=== PATIENT | female | born 1985 | race Caucasian/White ===

== ENCOUNTER 2019-07-21 17:05 | Emergency (ER) | payer OTHER, SELFPAY ==
[2019-07-21 17:16] VITALS: BP 155/93; PULSE 90; RESP 18; TEMP 37.1; O2SAT 95; BMI 61.3
--- NOTE | 2019-07-21 17:39 | XR_ITS ---
WS: [id number] Chest with right rib detail, 07/21/2019 Clinical Data: lifting/pain Comparison: None. Findings: The lungs show no nodules, masses, or effusions. The heart is normal. No pneumonia or pneumothorax is seen. The ribs are intact. No rib fractures seen. No subcutaneous emphysema is present. XR/XR ribs RT mn 3V w [id number] Impression: Negative chest with right rib detail.
--- NOTE | 2019-07-21 18:29 | ED_ITS ---
HPI - General Adult General: Chief complaint: General Medical Stated complaint: right rib pain Time Seen by Provider: 07/21/19 18:22 Source: patient Mode of arrival: ambulatory Limitations: no limitations History of Present Illness: HPI narrative: Patient is a 34-year-old female who presents to ED today with complaints of pain to her right back/chest. Patient states she was lifting something at work and heard a pop and wonders if she might have a rib out of place. Patient denies shortness of breath or difficulty breathing. She states pain seems to be worse with movement. Location: chest and back Severity: mild Pain Consistency: intermittent Relieving factors: immobilization Exacerbating factors: movement Associated symptoms: Reports no associated symptoms and chest pain; Deny dyspnea, nausea, palpitations, syncope or vomiting Treatments prior to arrival: none Review of Systems Const: Denies: fever or chills Card: Reports: chest pain; Denies: palpitations, irregular heart rhythm, edema, swelling of feet/ankles, lightheadedness, syncope, pre-syncope, shortness of breath on exertion, shortness of breath when lying down, leg pain with exertion or bluish discoloration of hands/feet Resp: Denies: shortness of breath, productive cough, non-productive cough, pain on inspiration, change in phlegm color, coughing up blood or chest congestion GI: Denies: abdominal pain, nausea or vomiting : Denies: flank pain, difficulty urinating, painful urination, urinary frequency, urinary urgency or urinary hesitancy Musc: Reports: back pain; Denies: neck pain, extremity pain, extremity swelling, joint pain or joint swelling PFS ED PFSH: Social History Smoking and tobacco status: current every day smoker Female Reproductive History: Date of last menstrual period: 06/24/19 Physical Exam Const: COMMON NORMALS: no apparent distress, oriented x3, no limitations and alert NUTRITIONAL APPEARANCE: obese Chest: COMMONS NORMALS: inspection of chest normal OTHER: TTP along mid posterior and lateral chest; no crepitus noted Resp: COMMON NORMALS: normal respiratory effort and clear to auscultation bilaterally AUSCULTATION: clear to auscultation bilaterally Cardio: COMMON NORMALS: regular rate and regular rhythm RATE: regular rate RHYTHM: regular rhythm GI: COMMON NORMALS: normal to inspection, nondistended, normoactive bowel sounds, soft to palpation, non-tender, no hepatosplenomegaly and no masses PALPATION: Yes soft and Yes no hepatosplenomegaly Extremity: COMMON NORMALS: normal to inspection and full ROM Neuro: COMMON NORMALS: oriented x3 SENSORIUM/ORIENTATION: Yes alert Course Vital Signs: Vital signs: Vital Signs Temperature 98.7 F 07/21/19 17:16 Pulse Rate 88 07/21/19 18:34 Respiratory Rate 17 07/21/19 18:34 Blood Pressure 157/90 07/21/19 18:34 Pulse Oximetry 92 07/21/19 18:34 MDM - General Adult Imaging Data^: R ribs/chest: My impression: NAD Discharge Plan Discharge Patient Disposition: Home, Self-Care Clinical Impression: Chest wall muscle strain Qualifiers: Encounter type: initial encounter Qualified Code(s): S29.011A - Strain of muscle and tendon of front wall of thorax, initial encounter Condition: Stable Prescriptions: No Action hydrocodone-acetaminophen 5-325 mg Tablet 1 tab PO Q4H PRN (Reason: Pain) RF: 0 lisinopril 20 mg Tablet 20 mg PO DAILY RF: 0 amlodipine 5 mg Tablet 5 mg PO DAILY RF: 0 levothyroxine 50 mcg Tablet 50 mcg PO DAILY RF: 0 buspirone 15 mg Tablet 15 mg PO TID RF: 0 venlafaxine 37.5 mg Tablet Extended Release 24 Hr 37.5 mg PO DAILY RF: 0 Discharge Orders: Discharge Order (Routine); Ordered 07/21/19 Ordered By: Dory Pollack Referrals: Fani Garcia MD [Family Provider] - Discharge Diet: Usual diet Discharge Activity: Increase activity as tolerated Patient Instructions: Chest Pain - Chest Wall, Musculoskeletal Pain (ED) Discharge Date/Time: 07/21/19 18:35 Coding Level of Care Code ED Nurse Epidemiologist for Stefania Kinsey
[2019-07-21 18:32] VITALS: BP 157/90; PULSE 88; RESP 18; O2SAT 92
[2019-07-21 18:34] VITALS: BP 157/90; PULSE 88; RESP 17; O2SAT 92
== END 2019-07-21 18:35 | disposition home or self-care (01) ==
PROVIDERS: Emergency Provider Physician Assistant; Family Provider Family Medicine
DX: S29.011A Strain of muscle and tendon of front wall of thorax, initial encounter (principal); F17.200 Nicotine dependence, unspecified, uncomplicated; E66.9 Obesity, unspecified; Z68.44 Body mass index [BMI] 60.0-69.9, adult; X50.9XXA Other and unspecified overexertion or strenuous movements or postures, initial encounter
CPT/HCPCS: 71101; 99281; 99282

== ENCOUNTER 2021-04-29 10:38 | Observation (INO) | payer OTHER, SELFPAY ==
[2021-04-29] VITALS (17 sets, daily range): BP systolic 111–159; BP diastolic 66–101; PULSE 74–96; RESP 14–20; TEMP 36.4–37.6; O2SAT 90–98; BMI 58.1; BMI 61.2
--- NOTE | 2021-04-29 10:39 | ED_ITS ---
HPI - Abdominal Pain General: Chief Complaint: Abdominal Pain Stated Complaint: abdominal pain Source: patient Mode of arrival: ambulatory Limitations: no limitations History of Present Illness: HPI narrative: 35-year-old female presents the ER today for periumbilical abdominal pain x3 days. Patient reports she was seen in another ER yesterday and given Zofran but did not have any imaging done. Patient reports pain has continued to worsen at this time. She reports nausea and vomiting, chills and a subjective fever. Patient denies diarrhea or constipation at this time. Patient reports a history of an undiagnosed umbilical hernia however it does seem to be larger and worse at this time. Patient reports her pain is located around the area of the umbilicus and denies any radiation other than in that general area. Patient reports this is a sharp pain that is almost constant currently. Patient denies any pain with urination or urinary symptoms. MD elicited complaint: abdominal pain Onset (ago): day(s) Pain Consistency: constant Location: Periumbilical Severity: moderate Quality: aching and sharp Radiation: none Exacerbating factors: eating and movement Relieving factors: nothing Associated Symptoms: Reports bloating, chills, fever(s), nausea and vomiting; Denies constipation and diarrhea Related Data: Date of Last Menstrual Period: 06/24/19 Review of Systems General: Reports: 10 or more systems reviewed and unremarkable except in HPI and below Const: Reports: fever(s), chills and change in appetite; Denies: body aches ENMT: Denies: throat pain, nasal discharge or nasal congestion Card: Denies: chest pain or palpitations Resp: Denies: dyspnea, productive cough or wheezing GI: Reports: abdominal pain, nausea, vomiting and bloating; Denies: diarrhea or constipation Musc: Denies: neck pain or back pain Skin/Breast: Denies: rash Neuro: Denies: headache(s) PFSH ED PFSH: Medical History (Updated 04/29/21 @ 14:36 by Laquita Lewis PA-C) Chronic back pain Hypertension Hypothyroidism Polycystic ovary disease Surgical History (Updated 04/29/21 @ 13:46 by Keith Means MD) Varicose vein of leg Ablated from left thigh Social History (Updated 04/29/21 @ 13:46 by Keith Means MD) Smoking and tobacco status: current every day smoker cigarettes Packs smoked per day: 0.5 Years cigarettes smoked: 15 Alcohol intake: never Female Reproductive History: Date of last menstrual period: 06/24/19 Physical Exam Const: COMMON NORMALS: patient oriented x3 and no limitations GENERAL APPEARANCE: cooperative; not comfortable (pt appears uncomfortable) NUTRITIONAL APPEARANCE: obese HENMT: COMMON NORMALS: normocephalic, external ears normal and Normal external nose present HEAD & SCALP: normocephalic NOSE: Normal external nose present EXTERNAL EAR: Yes external ears normal Eye: COMMON NORMALS: conjunctivae normal CONJUNCTIVA: Yes conjunctivae normal Neck/C-Spine: COMMON NORMALS: no lymphadenopathy Resp: COMMON NORMALS: normal respiratory effort, No retractions and clear to auscultation bilaterally AUSCULTATION: clear to auscultation bilaterally, no rales, no rhonchi and no wheezes Cardio: COMMON NORMALS: regular rate, regular rhythm and No murmurs present (Cardio) RATE: regular rate RHYTHM: regular rhythm GI: INSPECTION: Yes other (umbilical hernia noted that is TTP and difficult to reduce) AUSCULTATION: Yes normoactive bowel sounds PALPATION: Yes Firmness to palpation present (GI) and Yes Tenderness to palpation present (GI) (periumbilical and superior to umbilicus) : COMMON NORMALS: Yes no CVA tenderness BLADDER/KIDNEY EXAM: Yes no CVA tenderness Back/Pelvis: COMMON NORMALS: no CVA tenderness Extremity: COMMON NORMALS: full ROM Neuro: COMMON NORMALS: patient oriented x3 and moves all extremities Psych: COMMON NORMALS: mental status grossly normal, Normal thought process present, cooperative and normal affect THOUGHT PROCESS: Normal thought process present Skin: COMMON NORMALS: no rashes or lesions noted GENERAL SKIN EXAM: no rashes or lesions noted Course ED course: 35-year-old female presents to the ER today for abdominal pain that is located periumbilically. She does appear to have an umbilical hernia though she reports is undiagnosed. This is difficult to reduce given size and tenderness. There is also tenderness and a firm area superior to the umbilicus. We will get CT of the abdomen in addition to lab work at this time. Discussed patient with Dr. Mccormick who agreed with plan. Consultations: Consultation #1: Spoke with radiology. Patient has an incarcerated hernia superior to the umbilicus. There is small bowel within the hernia that is incarcerated and patient has a proximal obstruction to that. Also spoke with Dr. Mccormick who recommends calling surgery. Patient's pain is mini mal at this time. We will proceed with an NG tube. Time: 13:02 Consultation #2: Spoke with Dr. Means who will see pt in ED Time: 13:14 Vital Signs: Vital signs: Vital Signs Temperature 98.2 F 04/29/21 14:05 Pulse Rate 81 04/29/21 14:05 Respiratory Rate 16 04/29/21 14:05 Blood Pressure 126/81 04/29/21 14:05 Pulse Oximetry 98 04/29/21 14:05 MDM - Abdominal Pain MDM Narrative: Medical decision making narrative: 35-year-old female presents to the ER today for abdominal pain x3 days. Patient was seen in another ER and given Zofran but pain did not improve. Pain is periumbilical and worse with eating. On exam patient appears to have a hernia, likely incarcerated. CT does indicate an incarcerated hernia with small bowel involvement. Contacted Dr. Means who agreed to see patient in ER. Patient will be taken to surgery from here. Lab Data: Attestation: I reviewed the patient's lab results. Labs: Lab Results 04/29/21 04/29/21 04/29/21 10:50 10:50 10:50 WBC 13.4 10^3/uL H 10 ^3/uL (4.0-10.0) RBC 6.61 10^6/uL H 10 ^6/uL (4.1-5.3) Hgb 14.1 g/dL g/dL (11.5-15.3) Hct 46.9 % % (37.0-47.0) MCV 71.0 fl L fl (81-99) MCH 21.3 pg L pg (28.0-34.0) MCHC 30.1 g/dL g/dL (30.0-36.0) RDW 18.5 % H % (12.1-15.1) Plt Count 363 10^3/cmm 10^3 /cmm (130-400) MPV 9.2 fL fL (7.4-10.4) Neut % (Auto) 76.7 % % Lymph % (Auto) 11.0 % % [place] % (Auto) 9.5 % % Eos % (Auto) 1.8 % % Baso % (Auto) 0.6 % % Neut # (Auto) 10.23 10^3/uL H 1 0^3/uL (1.8-7.7) Lymph # (Auto) 1.5 10^3/uL 10^3/ uL (0.8-4.8) [place] # (Auto) 1.3 10^3/uL H 10^ 3/uL (0.2-0.9) Eos # (Auto) 0.2 10^3/uL 10^3/ uL (0.0-0.8) Baso # (Auto) 0.1 10^3/uL 10^3/ uL (0.0-0.1) Nucleated RBC % (a uto) 0 % % Nucleated RBCs # 0.0 /100WBC /100W BC PT INR APTT Sodium 134 mmol/L L mmol /L (136-145) Potassium 3.6 mmol/L mmol/L (3.5-5.1) Chloride 96 mmol/L L mmol/ L (98-107) Carbon Dioxide 24 mmol/L mmol/L (22-29) Anion Gap 17.6 (5-19) BUN 11 mg/dL mg/dL (6-20) Creatinine 0.8 mg/dL mg/dL (0.5-0.9) GFR Calculation 81.2 mL/min L mL/ min (90-130) Glucose 108 mg/dL mg/dL (65-115) Calculated Osmolal ity 278 mOsm/kg L mOs m/kg (285-295) Lactate 1.1 mmol/L mmol/L (0.5-2.2) Calcium 8.6 mg/dL mg/dL (8.5-10.5) Total Bilirubin 0.5 mg/dL mg/dL (0.15-1.2) AST 15 U/L U/L (0-32) ALT 19 U/L U/L (0-33) Alkaline Phosphata se 59 IU/L IU/L (35-105) Total Protein 7.1 g/dL g/dL (6.6-8.7) Albumin 3.8 g/dL g/dL (3.5-5.2) Globulin 3.3 g/dL g/dL (1.3-4.6) Lipase 13 U/L U/L (13-60) HCG, Qual Urine Color Urine Appearance Urine pH Ur Specific Gravit y Urine Protein Urine Glucose (UA) Urine Ketones Urine Blood Urine Nitrate Urine Bilirubin Urine Urobilinogen Ur Leukocyte Eve ase 04/29/21 04/29/21 04/29/21 10:50 11:15 11:15 WBC RBC Hgb Hct MCV MCH MCHC RDW Plt Count MPV Neut % (Auto) Lymph % (Auto) [place] % (Auto) Eos % (Auto) Baso % (Auto) Neut # (Auto) Lymph # (Auto) [place] # (Auto) Eos # (Auto) Baso # (Auto) Nucleated RBC % (a uto) Nucleated RBCs # PT 14.30 SECONDS SEC ONDS (12.1-14.9) INR 1.08 (0.8-1.2) APTT 27.5 SECONDS SECO NDS (23.9-36.7) Sodium Potassium Chloride Carbon Dioxide Anion Gap BUN Creatinine GFR Calculation Glucose Calculated Osmolal ity Lactate Calcium Total Bilirubin AST ALT Alkaline Phosphata se Total Protein Albumin Globulin Lipase HCG, Qual Negative (Negative) Urine Color Yellow (Yellow) Urine Appearance Clear (CLEAR) Urine pH 5 (5-7) Ur Specific Gravit y 1.025 (1.005-1.030) Urine Protein Neg (Negative) Urine Glucose (UA) Norm (Normal) Urine Ketones 2+ H (Negative) Urine Blood Neg (Negative) Urine Nitrate Negative (Negative) Urine Bilirubin 1+ H (Negative) Urine Urobilinogen 4 mg/dL H mg/dL (Negative) Ur Leukocyte Eve ase Negative (Negative) Imaging Data ^: CT Abd/Pel: Radiologist's impression: [address] [address] [address] Scan Report Signed Patient: Renee Mata Unit #: [id number] : 1985 Age/Sex: 35 / F ADM Date: 04/29/21 Loc: ER Room/Bed: Attending Dr: Ordering Provider/Ordering MD: Laquita Lewis Date of Service: 04/29/21 Procedure(s): CT abdomen pelvis w con* [id number] Accession Number(s): [id number] Report Number: [id number] WS: [id number] CT ABDOMEN PELVIS TECHNIQUE: Contrast-enhanced CT of the abdomen and pelvis with coronal and sagittal reformatted images. Delayed contrast imaging due to difficulty with IV with poor solid organ enhancement. CLINICAL INFORMATION: periumbilical pain COMPARISON: None. DLP: 1738.[address] scans at [facility] use at least one of these dose optimization techniques: automated exposure control; mA and/or kV adjustment per patient size (includes targeted exams where dose is matched to clinical indication); or iterative reconstruction. FINDINGS: Supraumbilical hernia with herniated loop of obstructed small bowel. Incarcerated herniated small bowel loop with evidence of proximal small bowel obstruction. Fluid-filled obstructed proximal small bowel measures 3.8 cm in maximum dimension. Small amount of induration with trace fluid in the supraumbilical hernia. Distal small bowel is decompressed. Normal colon. Liver appears grossly normal. Small amount of perihepatic fluid. Normal spleen. Fatty atrophy of the pancreas. Gallbladder appears normal. Normal GE junction. Lung bases are well aerated. Normal caliber abdominal aorta. CT/CT abdomen pelvis w con* [id number] IMPRESSION: 1. Evidence of small bowel obstruction due to incarcerated supraumbilical hernia with herniated loop of small bowel. Small amount of surrounding induration and fluid. Dilated small bowel loops measure up to 3.8 cm. No free air. Distal small bowel is decompressed. 2. No other acute findings in the abdomen or pelvis. Attempted notification Laquita Lewis PA-C at 04/29/2021 12:55 PM. Not currently available for verbal report. 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
--- NOTE | 2021-04-29 10:39 | CT_ITS ---
WS: [id number] CT ABDOMEN PELVIS TECHNIQUE: Contrast-enhanced CT of the abdomen and pelvis with coronal and sagittal reformatted image s. Delayed contrast imaging due to difficulty with IV with poor solid organ enhancement. CLINICAL INFORMATION: periumbilical pain COMPARISON: None. DLP: 1738.[address] scans at [facility] use at least one of these dose optimization techniques: automated e xposure control; mA and/or kV adjustment per patient size (includes targeted exams where dose is matc hed to clinical indication); or iterative reconstruction. FINDINGS: Supraumbilical hernia with herniated loop of obstructed small bowel. Incarcerated herniated small bow el loop with evidence of proximal small bowel obstruction. Fluid-filled obstructed proximal small bow el measures 3.8 cm in maximum dimension. Small amount of induration with trace fluid in the supraumbi lical hernia. Distal small bowel is decompressed. Normal colon. Liver appears grossly normal. Small amount of perihepatic fluid. Normal spleen. Fatty a trophy of the pancreas. Gallbladder appears normal. Normal GE junction. Lung bases are well aerated. Normal caliber abdominal aorta. CT/CT abdomen pelvis w con* [id number] IMPRESSION: 1. Evidence of small bowel obstruction due to incarcerated supraumbilical raul ia with herniated loop of small bowel. Small amount of surrounding induration a nd fluid. Dilated small bowel loops measure up to 3.8 cm. No free air. Distal s mall bowel is decompressed. 2. No other acute findings in the abdomen or pelvis. Attempted notification Laquita Lewis PA-C at 04/29/2021 12:55 PM. Not currently available for verbal report.
[2021-04-29 11:12] LABS: Basophils # 0.1 10^3/uL (0.0-0.1); Basophils % 0.6 %; Eosinophils # 0.2 10^3/uL (0.0-0.8); Eosinophils % 1.8 %; Hematocrit 46.9 % (37.0-47.0); Hemoglobin 14.1 g/dL (11.5-15.3); Lymphocytes # 1.5 10^3/uL (0.8-4.8); Mean Corpuscular HGB Conc 30.1 g/dL (30.0-36.0); Mean Corpuscular Hemoglobin 21.3 pg (28.0-34.0); Mean Platelet Volume 9.2 fL (7.4-10.4); Monocytes # 1.3 10^3/uL (0.2-0.9); Monocytes % 9.5 %; Neutrophils # 10.23 10^3/uL (1.8-7.7); Neutrophils % 76.7 %; Nucleated Red Blood Cells % 0 %; Platelet Count 363 10^3/cmm (130-400); Red Blood Count 6.61 10^6/uL (4.1-5.3); Red Cell Distribution Width 18.5 % (12.1-15.1); White Blood Count 13.4 10^3/uL (4.0-10.0)
[2021-04-29 11:16] LABS: INR 1.08 (0.8-1.2)
[2021-04-29 11:17] LABS: Partial Thromboplastin Time 27.5 SECONDS (23.9-36.7)
[2021-04-29 11:27] LABS: Alanine Aminotransferase 19 U/L (0-33); Albumin Level 3.8 g/dL (3.5-5.2); Alkaline Phosphatase 59 IU/L (35-105); Anion Gap 17.6 (5-19); Aspartate Amino Transferase 15 U/L (0-32); Blood Urea Nitrogen 11 mg/dL (6-20); Calcium 8.6 mg/dL (8.5-10.5); Carbon Dioxide 24 mmol/L (22-29); Chloride 96 mmol/L (98-107); Globulin 3.3 g/dL (1.3-4.6); Glomerular Filtration Rate 81.2 mL/min (90-130); Glucose 108 mg/dL (65-115); Lactate (Lactic Acid level) 1.1 mmol/L (0.5-2.2); Lipase 13 U/L (13-60); Osmolality Calculated 278 mOsm/kg (285-295); Potassium 3.6 mmol/L (3.5-5.1); Sodium 134 mmol/L (136-145); Total Bilirubin 0.5 mg/dL (0.15-1.2); Total Protein 7.1 g/dL (6.6-8.7)
[2021-04-29 11:47] LABS: Add Urine Microscopic? NO; Charge for UA Resulting for Rev
[2021-04-29 11:52] LABS: HCG Qualitative Urine. Negative (Negative)
[2021-04-29 12:12] LABS: Bilirubin Urine 1+ (Negative); Blood Urine Neg (Negative); Glucose Urine UA Norm (Normal); Ketones Urine 2+ (Negative); Leukocyte Esterase Urine Negative (Negative); Nitrate Urine Negative (Negative); Protein Urine Neg (Negative); Specific Gravity, Urine 1.025 (1.005-1.030); Urine Appearance Clear (CLEAR); Urine Color Yellow (Yellow); Urobilinogen Urine 4 mg/dL (Negative); pH Urine 5 (5-7)
--- NOTE | 2021-04-29 13:43 | P.HP_ITS ---
Providers/Chief Complaint Admitting Physician: General Surgery Keith Means MD Primary Care Provider: Dafne Minaya DO Chief Complaint: abdominal pain History of Present Illness Renee Mata is a 35 year old female who started feeling bloated about 5 days ago. She started vomiting the next day and that has persisted until now. She has been aware of a small bulge on her abdomen above her umbilicus for several years. She says she also has had a small bulge at her umbilicus for several years. She has noticed the bulge above her umbilicus has been more sore since her symptoms started earlier this week. She has not had a bowel movement since Sunday (4 days ago). She doesn't recall passing any flatus since then, either. She came to the emergency room and a CAT scan showed changes of a small bowel obstruction secondary to an incarcerated hernia above the umbilical level. Review of Systems General: Reports: 10 or more systems reviewed and unremarkable except in HPI and below Const: Denies: fever(s) GI: Reports: abdominal pain, nausea, vomiting and other (Obstipation for 4 days) Medications/Allergies Home Medications Medication Instructions Recorded Confirmed Last Taken Type amlodipine 5 mg PO DAILY 07/21/19 07/21/19 07/21/19 History hydrocodone-acetaminophen 1 tab PO Q4H PRN 07/21/19 07/21/19 07/21/19 04:00 History levothyroxine 50 mcg PO DAILY 07/21/19 07/21/19 07/21/19 History lisinopril-hydrochlorothiazide 1 tab PO DAILY 04/29/21 04/29/21 04/28/21 History tramadol 50 mg PO Q6H PRN 04/29/21 04/29/21 Unknown History Allergies Allergy/AdvReac Type Severity Reaction Status Date / Time No Known Allergies Allergy Verified 07/21/19 17:20 PFSH Acute PFSH: Medical History (Updated 04/29/21 @ 13:50 by Keith Means MD) Hypertension Hypothyroidism Polycystic ovary disease Surgical History (Updated 04/29/21 @ 13:46 by Keith Means MD) Varicose vein of leg Ablated from left thigh Social History (Updated 04/29/21 @ 13:46 by Keith Means MD) Smoking and tobacco status: current every day smoker cigarettes Packs smoked per day: 0.5 Years cigarettes smoked: 15 Alcohol intake: never Female Reproductive History: Date of last menstrual period: 06/24/19 Vitals/I&O/Wt Last Vital Signs Temp 99.7 F H 04/29/21 10:48 Pulse 93 04/29/21 10:48 Resp 20 H 04/29/21 10:48 BP 127/88 04/29/21 10:48 Pulse Ox 95 04/29/21 10:48 Weight last 48 hrs Weight 360 lb Physical Exam Narrative: EXAM NARRATIVE: The patient was encountered in her room in the emergency department. She doesn't appear to be in any distress. The pupils are equal. No carotid bruits are heard. The lungs are clear anteriorly. The heart is regular. The abdomen is morbidly obese. The patient has a palpable mass that somewhat firm above the umbilicus but is only mildly tender. This is in the location of the hernia seen on the CAT scan but I cannot get the area to completely reduce. She has an obvious umbilical hernia which only appears to contain fat and is nontender. The extremities may reveal some very mild edema. Neurologically the patient appears to be grossly intact. Data : 04/29/21 10:50 04/29/21 10:50 CT Abd/Pel: Radiologist's impression: CT abdomen/pelvis 04/29/2021 IMPRESSION: 1. Evidence of small bowel obstruction due to incarcerated supraumbilical hernia with herniated loop of small bowel. Small amount of surrounding induration and fluid. Dilated small bowel loops measure up to 3.8 cm. No free air. Distal small bowel is decompressed. 2. No other acute findings in the abdomen or pelvis. A&P Assessment and plan (1) Incarcerated ventral hernia: The patient has been aware of a bump above her umbilicus for several years. This been more sore since the beginning of this last week but hasn't really changed a great deal in size. The CAT scan was reviewed and this reveals an incarcerated hernia involving the small bowel resulting in a small bowel obstruction. I discussed reduction and repair of the hernia with the patient. Surgical risks of bleeding, infection, hernia recurrence (particularly given her size), details of postoperative activity limitation for 6 weeks, etc. were all discussed. The patient seems to understand and would like to proceed with surgery today. The patient has only had sips of fluids today. She has not had any solid food over the past several days. I'm going to make arrangements for the urgent reduction and repair of the incarcerated ventral hernia today. Status: Acute (2) Small bowel obstruction: Secondary to #1. Status: Acute (3) Umbilical hernia: This is not part of the patient's acute presentation, but I offered her the chance to get this repaired while she was in the operating room today since it is not going to change her postoperative activity limitations, etc. She would like me to repair it. Status: Acute Attestations Medical Necessity Statement*: Based on my medical assessment, presenting symptoms and consideration of the scope of surgical therapy, I expect this patient will require treatment in the hospital for a period of time spanning less than 2 midnights, and is therefore being placed in observation status. 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
--- NOTE | 2021-04-29 13:55 | PC.NURSE ---
This RN unable to place NG tube as staff came down from surgery to take pt almost immediately
--- NOTE | 2021-04-29 14:03 | P.ANESASSM_ITS ---
Pre-Anesthetic Assessment Pre-Anesthetic Assessment: Height/Weight: Height 1.68 m Weight 163.293 kg Temp Pulse Resp BP Pulse Ox 99.7 F H 93 20 H 127/88 95 04/29/21 13:56 04/29/21 13:56 04/29/21 13:56 04/29/21 13:56 04/29/21 13:56 Preop Diagnosis: incarcerated hernia Proposed Procedure: Operation Date: 04/29/21 14:00 Proposed Procedures p Ventral Hernia Repair (Open)(Not Applicable) - Keith Means MD s Umbilical Hernia Repair(Not Applicable) - Keith Means MD Familial anesthetic complications: none Was Beta Charlette taken within 24 hours: N/A Was Clonidine taken within 24 hours: N/A Last intake: Food- 04/25 Liquid- 04/29 0900 Social: Social History: Tobacco Packs per day: 0.5 Pack years: 20 Exam: Pre-Anes Outpt Exam: alert, oriented x 3 and clear to auscultation bilaterally Airway: Submandibular: WNL Cervical ROM: WNL MP: 2 Dentition: Full History/ROS: No significant history except as noted Pulmonary: Comments: patient believes she has LEON no study done. CV/HEM: CV/HEM: HTN : : None reported Hepatic: Hepatic: None reported GI: GI: None reported Comments: N/V all week no current symptoms Metabolic: Metabolic: Morbid obesity and Thyroid Musc/skel: Musc/skel: Lower Back Pain and OA/DJD Neuropsych: Neuropsych: None reported Anesthetic Plan: ASA status: 3 Anesthesia: General Risk of > 500 ml blood loss (7ml/kg in children): No PFSH Anesthesia PFSH: Medical History (Updated 04/29/21 @ 13:50 by Keith Means MD) Hypertension Hypothyroidism Polycystic ovary disease Surgical History (Updated 04/29/21 @ 13:46 by Keith Means MD) Varicose vein of leg Ablated from left thigh Social History (Updated 04/29/21 @ 13:46 by Keith Means MD) Smoking and tobacco status: current every day smoker cigarettes Packs smoked per day: 0.5 Years cigarettes smoked: 15 Alcohol intake: never Female Reproductive History: Date of last menstrual period: 06/24/19 Data Anesthesia CBC & Chem 7: 04/29/21 10:50 04/29/21 10:50 Other Labs: Laboratory Results - last 48 hr 04/29/21 04/29/21 04/29/21 10:50 10:50 10:50 WBC 13.4 H RBC 6.61 H Hgb 14.1 Hct 46.9 MCV 71.0 L MCH 21.3 L MCHC 30.1 RDW 18.5 H Plt Count 363 MPV 9.2 Neut % (Auto) 76.7 Lymph % (Auto) 11.0 [place] % (Auto) 9.5 Eos % (Auto) 1.8 Baso % (Auto) 0.6 Neut # (Auto) 10.23 H Lymph # (Auto) 1.5 [place] # (Auto) 1.3 H Eos # (Auto) 0.2 Baso # (Auto) 0.1 Nucleated RBC % (auto) 0 Nucleated RBCs # 0.0 PT INR APTT Sodium 134 L Potassium 3.6 Chloride 96 L Carbon Dioxide 24 Anion Gap 17.6 BUN 11 Creatinine 0.8 GFR Calculation 81.2 L Glucose 108 Calculated Osmolality 278 L Lactate 1.1 Calcium 8.6 Total Bilirubin 0.5 AST 15 ALT 19 Alkaline Phosphatase 59 Total Protein 7.1 Albumin 3.8 Globulin 3.3 Lipase 13 HCG, Qual Urine Color Urine Appearance Urine pH Ur Specific [place] Urine Protein Urine Glucose (UA) Urine Ketones Urine Blood Urine Nitrate Urine Bilirubin Urine Urobilinogen Ur Leukocyte Esterase 04/29/21 04/29/21 04/29/21 10:50 11:15 11:15 WBC RBC Hgb Hct MCV MCH MCHC RDW Plt Count MPV Neut % (Auto) Lymph % (Auto) [place] % (Auto) Eos % (Auto) Baso % (Auto) Neut # (Auto) Lymph # (Auto) [place] # (Auto) Eos # (Auto) Baso # (Auto) Nucleated RBC % (auto) Nucleated RBCs # PT 14.30 INR 1.08 APTT 27.5 Sodium Potassium Chloride Carbon Dioxide Anion Gap BUN Creatinine GFR Calculation Glucose Calculated Osmolality Lactate Calcium Total Bilirubin AST ALT Alkaline Phosphatase Total Protein Albumin Globulin Lipase HCG, Qual Negative Urine Color Yellow Urine Appearance Clear Urine pH 5 Ur Specific [place] 1.025 Urine Protein Neg Urine Glucose (UA) Norm Urine Ketones 2+ H Urine Blood Neg Urine Nitrate Negative Urine Bilirubin 1+ H Urine Urobilinogen 4 H Ur Leukocyte Esterase Negative Cardiac Studies: No Data to Display
[2021-04-29] MEDS: sodium chloride 0.9% 1,000 ML 30 ML IV (14:23)
[2021-04-29] MEDS: ceFAZolin 1,000 MG in sodium chloride 0.9% (plus) 50 ML 100 MG IV (14:38)
--- NOTE | 2021-04-29 15:21 | PM.OP ---
Operative Report Date of procedure: April 29, 2021 Pre-op Diagnosis: 1. Incarcerated ventral hernia resulting in small bowel obstruction. Pre-op Diagnosis: 2. Umbilical hernia. Post-op diagnosis: same Procedure Done: 1. Reduction and repair of incarcerated ventral hernia. 2. Repair of umbilical hernia. Specimens removed/disposition: Incarcerated ventral hernia sac with incarcerated omentum. Surgeon: Keith Means Anesthesia: General Estimated blood loss (mL): 10 Complications: None. Condition: stable Disposition: PACU Procedure: The patient was brought to the operating room and was placed in a supine position on the operating room table. General endotracheal anesthesia was induced. The abdomen was prepped and draped in a sterile fashion. A combination of 1% lidocaine with 1 to 100,000 parts epinephrine and 0.5% bupivacaine was used for local anesthesia throughout the procedures. A vertical incision was carried out above the umbilicus. Cautery was used to divide the subcutaneous tissue and the hernia sac was quickly identified. The contents through the sac appeared to be somewhat dusky and the hernia sac was freed on all sides down to the fascia. The hernia sac was opened revealing minimal serosanguineous fluid but some dusky omentum was incarcerated within the hernia. This was serially divided and ligated with ties of 2-0 Vicryl back to obviously healthy tissue. In the process, it became apparent that a small loop of bowel was present within the inferior portion of the hernia defect. This was somewhat hemorrhagic in appearance but was clearly viable. It was easily reduced through the defect. The remainder of the incarcerated omentum was ligated and the hernia sac and omentum were spent as a specimen. Dissection was then carried out inferiorly towards the known umbilical hernia. It was found that some of the original herniated fat had extended superiorly on top of the fascia and was incorporated into the clinically apparent umbilical hernia. The incarcerated fat was excised. The ventral wall hernia defect that remained measured perhaps 6 cm in diameter but the surrounding tissue was in very good condition and was lax. The wound was irrigated with saline. The defect was closed transversely using multiple interrupted sutures of #2 Ethibond. This did a good job of bringing the tissue back together without undue tension and completely closed the defect. The dependent portion of the umbilical skin was brought back down to the fascial layer using a suture of 0 Vicryl. A final round of irrigation was carried out. The dermis was closed using multiple inverted interrupted sutures of 2-0 Vicryl. The skin was reapproximated using a running subcuticular suture of 3-0 Vicryl. Benzoin and Steri-Strips were placed over the incision and a sterile bandage followed. The patient was taken to the recovery room in stable condition postoperatively.
[2021-04-29] MEDS: ondansetron 2 mg/ML SDV 2 mL 4 MG IVP (15:53)
--- NOTE | 2021-04-29 16:09 | SUR.PHASEI ---
1536 PT TO OPS BAY 10 PT CARE PER MEAT SELECTOR AND OR NURSE Federico RINCNO RN, PT CARE ASSUMED AT 1545 PT AWAKES AND ORAL AIRWAY OUT, PT C/OF NAUSEA, COOL CLOTH TO FOREHEAD, PT HOB UP SEE MED GIVEN 1607 PT OUT OF PHASE 1 PT CARE ASSUMED BY Corry PINEDA RN.
--- NOTE | 2021-04-29 16:14 | ANE.PACU2 ---
Inpatient post-anesthesia follow up: Airway intact: Yes Vital signs: Temperature 97.8 F Pulse Rate 90 Respiratory Rate 14 Blood Pressure 150/86 Pulse Oximetry 92 Oxygen Delivery Me thod Nasal Cannula Oxygen Flow Rate 3 Fraction of Inspir ed Oxygen Hydration adequate: Yes Nausea and vomiting: No Pain level: 2 Mental status: Baseline
--- NOTE | 2021-04-29 16:15 | PC.NURSE ---
REPORT RECEIVED FROM ROSARIO ZALDIVAR RN AND CARE TAKEN OVER. FAMILY AT BEDSIDE. DR TREVINO SPOKE WITH PT IN EXTENDED CARE AND DISCUSSED PLAN OF CARE.
--- NOTE | 2021-04-29 16:52 | PC.NURSE ---
PT EATING CLEAR LIQUID TRAY.
[2021-04-29] MEDS: ketorolac 30 mg/mL INJ IVP (17:15)
[2021-04-29] MEDS: HYDROcodone-acetaminophen 5-325 mg Tablet PO (17:22)
--- NOTE | 2021-04-29 17:32 | SUR.PHASEI ---
1710 PT ATE MOST OF THE CLEAR LIQUID TRAY PT NOW C/O OF ABD PAIN PT GRIMICES BUT DOES NOT GIVE A NUMBER, FACE SCALE 5 SEE MEDS GIVEN ORDERED FOR THE FLOOR, PT STILL IN HOLDING WAITING FOR ROOM TO BE READY.
[2021-04-29] MEDS: famotidine 20 mg/2 mL INJ IVP (18:24)
[2021-04-29] MEDS: levofloxacin-dextrose 5 % 500 MG/100 ML PREMIX 100 MG IV (18:25)
[2021-04-29] MEDS: heparin 5,000 unit/mL INJ 1 mL 5000 UNIT SUBCUT (18:25)
[2021-04-29] MEDS: D5-NS 0.45% + KCL 20 mEq 20 MEQ/1,000 ML BAG 100 MEQ IV (19:21)
[2021-04-29] MEDS: TRAMadol 50 mg Tablet PO (19:46)
[2021-04-29] MEDS: levalbuterol 0.63 mg/3 mL Neb INHALATION (19:58)
[2021-04-30] MEDS: levalbuterol 0.63 mg/3 mL Neb INHALATION ×2 (00:22→07:39)
[2021-04-30 00:23] VITALS: PULSE 81; RESP 18; O2SAT 95
[2021-04-30 00:29] VITALS: PULSE 79
[2021-04-30] MEDS: HYDROcodone-acetaminophen 5-325 mg Tablet PO (03:57)
[2021-04-30 04:41] VITALS: BP 122/78; PULSE 81; RESP 18; TEMP 36.7; O2SAT 94
[2021-04-30] MEDS: famotidine 20 mg/2 mL INJ IVP (05:35)
[2021-04-30] MEDS: heparin 5,000 unit/mL INJ 1 mL 5000 UNIT SUBCUT (05:45)
[2021-04-30] MEDS: D5-NS 0.45% + KCL 20 mEq 20 MEQ/1,000 ML BAG 100 MEQ IV (05:46)
[2021-04-30 06:23] LABS: Basophils % 0.4 %; Eosinophils # 0.1 10^3/uL (0.0-0.8); Eosinophils % 0.8 %; Hematocrit 40.6 % (37.0-47.0); Hemoglobin 12.1 g/dL (11.5-15.3); Lymphocytes # 0.7 10^3/uL (0.8-4.8); Lymphocytes % 7.3 %; Mean Corpuscular HGB Conc 29.8 g/dL (30.0-36.0); Mean Corpuscular Hemoglobin 21.1 pg (28.0-34.0); Mean Corpuscular Volume 70.7 fl (81-99); Monocytes # 0.9 10^3/uL (0.2-0.9); Monocytes % 9.5 %; Neutrophils # 8.05 10^3/uL (1.8-7.7); Neutrophils % 81.7 %; Nucleated Red Blood Cells % 0 %; Platelet Count 312 10^3/cmm (130-400); Red Blood Count 5.74 10^6/uL (4.1-5.3); Red Cell Distribution Width 16.9 % (12.1-15.1); White Blood Count 9.9 10^3/uL (4.0-10.0)
[2021-04-30 07:01] LABS: Anion Gap 17.6 (5-19); Blood Urea Nitrogen 10 mg/dL (6-20); Calcium 8.2 mg/dL (8.5-10.5); Carbon Dioxide 20 mmol/L (22-29); Chloride 99 mmol/L (98-107); Glomerular Filtration Rate 113.1 mL/min (90-130); Glucose 131 mg/dL (65-115); Osmolality Calculated 277 mOsm/kg (285-295); Potassium 3.6 mmol/L (3.5-5.1); Sodium 133 mmol/L (136-145)
[2021-04-30 07:41] VITALS: PULSE 80; RESP 16; O2SAT 93
[2021-04-30 07:44] VITALS: PULSE 82; RESP 18; O2SAT 94
[2021-04-30 08:00] VITALS: BP 133/86; PULSE 96; RESP 16; TEMP 36.8; O2SAT 92
[2021-04-30] MEDS: hydroCHLOROthiazide 25 mg Tablet PO (09:06)
[2021-04-30] MEDS: lisinopril 20 mg Tablet PO (09:06)
[2021-04-30] MEDS: amlodipine 5 mg Tablet PO (09:06)
[2021-04-30] MEDS: TRAMadol 50 mg Tablet PO (09:11)
--- NOTE | 2021-04-30 09:30 | PM.DCS ---
Discharge Providers Date of Admission: 04/29/21 17:25 Date of Discharge: April 30, 2021 Attending Provider at Admission: Keith Means MD Attending Provider at Discharge: Keith Means MD Primary Care Provider: Dafne Minaya DO Diagnoses at Discharge Discharge Diagnosis (1) Incarcerated ventral hernia: Status: Acute Permanent problem details: With small bowel obstruction (2) Small bowel obstruction: Status: Acute (3) Umbilical hernia: Status: Acute Qualifiers: Obstruction and gangrene presence: without obstruction or gangrene Qualified Code(s): K42.9 - Umbilical hernia without obstruction or gangrene Reason for Visit Reason for Visit: abdominal pain Hospital Course Hospital Course This is a 35-year-old white female with a several year history of known ventral and umbilical hernias. She developed symptoms of obstipation about 4 to 5 days prior to presentation to the emergency department. A CAT scan showed an incarcerated loop of small bowel within her ventral hernia above the umbilicus, resulting in a small bowel obstruction. The patient was taken to surgery urgently and the ventral and umbilical hernias were both repaired. She was found to have a limited loop of small bowel within the ventral hernia that was somewhat hemorrhagic but was clearly viable. No bowel was resected. By the following morning the patient was feeling well and thought she was ready to go home. She had not started passing flatus yet but felt like she was close. She was tolerating an oral diet and her pain was under good control. Vital signs were stable and her white blood cell count had returned to normal. The patient was instructed with respect to wound care, activity limitations, pain control (she is already on pain medication at home and thought that would be adequate postoperatively), diet, etc. Arrangements will be made for her to follow-up in my office in a period of 7 to 10 days. Physical Exam Narrative: EXAM NARRATIVE: Vital signs are stable. Bowel sounds are present. The midline incision dressing is intact. Discharge Data Data Completed and Pending: Completed Studies During Hospitalization Category Date Time Status CT abdomen pelvis w con* [id number] Urge nt Cat Scan 04/29/21 10:39 Completed Pending at discharge Category Date Time Status Pathology: Surgic al [PTH] Routine Pth 04/29/21 16:31 Ordered Labs from last 24 hours 04/30/21 04/30/21 04/29/21 06:03 06:03 11:15 WBC 9.9 RBC 5.74 H Hgb 12.1 Hct 40.6 MCV 70.7 L MCH 21.1 L MCHC 29.8 L RDW 16.9 H Plt Count 312 MPV 9.0 Neut % (Auto) 81.7 Lymph % (Auto) 7.3 [place] % (Auto) 9.5 Eos % (Auto) 0.8 Baso % (Auto) 0.4 Neut # (Auto) 8.05 H Lymph # (Auto) 0.7 L [place] # (Auto) 0.9 Eos # (Auto) 0.1 Baso # (Auto) 0.0 Nucleated RBC % (a uto) 0 Nucleated RBCs # 0.0 PT INR APTT Sodium 133 L Potassium 3.6 Chloride 99 Carbon Dioxide 20 L Anion Gap 17.6 BUN 10 Creatinine 0.6 GFR Calculation 113.1 Glucose 131 H Calculated Osmolal ity 277 L Lactate Calcium 8.2 L Total Bilirubin AST ALT Alkaline Phosphata se Total Protein Albumin Globulin Lipase HCG, Qual Urine Color Yellow Urine Appearance Clear Urine pH 5 Ur Specific Gravit y 1.025 Urine Protein Neg Urine Glucose (UA) Norm Urine Ketones 2+ H Urine Blood Neg Urine Nitrate Negative Urine Bilirubin 1+ H Urine Urobilinogen 4 H Ur Leukocyte [place] a[place] Negative 04/29/21 04/29/21 04/29/21 11:15 10:50 10:50 WBC RBC Hgb Hct MCV MCH MCHC RDW Plt Count MPV Neut % (Auto) Lymph % (Auto) [place] % (Auto) Eos % (Auto) Baso % (Auto) Neut # (Auto) Lymph # (Auto) [place] # (Auto) Eos # (Auto) Baso # (Auto) Nucleated RBC % (a uto) Nucleated RBCs # PT 14.30 INR 1.08 APTT 27.5 Sodium Potassium Chloride Carbon Dioxide Anion Gap BUN Creatinine GFR Calculation Glucose Calculated Osmolal ity Lactate 1.1 Calcium Total Bilirubin AST ALT Alkaline Phosphata se Total Protein Albumin Globulin Lipase HCG, Qual Negative Urine Color Urine Appearance Urine pH Ur Specific Gravit y Urine Protein Urine Glucose (UA) Urine Ketones Urine Blood Urine Nitrate Urine Bilirubin Urine Urobilinogen Ur Leukocyte Eve ase 04/29/21 04/29/21 10:50 10:50 WBC 13.4 H RBC 6.61 H Hgb 14.1 Hct 46.9 MCV 71.0 L MCH 21.3 L MCHC 30.1 RDW 18.5 H Plt Count 363 MPV 9.2 Neut % (Auto) 76.7 Lymph % (Auto) 11.0 [place] % (Auto) 9.5 Eos % (Auto) 1.8 Baso % (Auto) 0.6 Neut # (Auto) 10.23 H Lymph # (Auto) 1.5 [place] # (Auto) 1.3 H Eos # (Auto) 0.2 Baso # (Auto) 0.1 Nucleated RBC % (a uto) 0 Nucleated RBCs # 0.0 PT INR APTT Sodium 134 L Potassium 3.6 Chloride 96 L Carbon Dioxide 24 Anion Gap 17.6 BUN 11 Creatinine 0.8 GFR Calculation 81.2 L Glucose 108 Calculated Osmolal ity 278 L Lactate Calcium 8.6 Total Bilirubin 0.5 AST 15 ALT 19 Alkaline Phosphata se 59 Total Protein 7.1 Albumin 3.8 Globulin 3.3 Lipase 13 HCG, Qual Urine Color Urine Appearance Urine pH Ur Specific Gravit y Urine Protein Urine Glucose (UA) Urine Ketones Urine Blood Urine Nitrate Urine Bilirubin Urine Urobilinogen Ur Leukocyte Eve ase Vitals: Last Vital Signs Temp 98.2 F 04/30/21 08:00 Pulse 96 04/30/21 08:00 Resp 16 04/30/21 08:00 BP 133/86 04/30/21 08:00 Pulse Ox 92 04/30/21 08:00 Discharge Plan Discharge Patient Disposition: Home Condition: Stable Prescriptions: Continued hydrocodone-acetaminophen 5-325 mg Tablet 1 tab PO Q4H PRN (Reason: Pain) RF: 0 amlodipine 5 mg Tablet 5 mg PO DAILY RF: 0 levothyroxine 50 mcg Tablet 50 mcg PO DAILY RF: 0 tramadol 50 mg Tablet 50 mg PO Q6H PRN (Reason: Pain) RF: 0 lisinopril-hydrochlorothiazide 20-25 mg tablet 1 tab PO DAILY RF: 0 Discharge Orders: Discharge Order (Routine); Ordered 04/30/21 Ordered By: Keith Means Referrals: Keith Means MD [Physician] - 7-10 days (Nursing: Please have the patient / family call Dr. Means's office on Sunday ([phone]) and make an appointment for the patient to be seen in 7-10 days.) Discharge Diet: Advance as tolerated Discharge Activity: Limit activity as instructed Patient Instructions: Ventral Hernia Repair (DC), Opioid Safety Activity Restrictions/Additional Instructions: 1. Discharge to home today. 2. Appointment to see Dr. Means in 7-10 days as above. 3. Bandage off tomorrow, leave Steri-Strip(s) on, may shower. 4. Pain medication at home as previously prescribed and discussed. No lifting over 20 pounds, no repetitive bending or twisting, no strenuous pushing / pulling or other heavy activity. Ambulate regularly. May go up and down steps if needed. Discharge Attestations Time Spent in Discharge Care*: less than 30 min Quality Metrics Clinical Quality Measures During this hospital stay, did patient experience: None Coding Level of Care Code Acute g DC note Diagnoses Incarcerated ventral hernia K43.6 Small bowel obstruction K56.609 Umbilical hernia K42.9 Obstruction and gangrene presence: without obstruction or gangrene
== END 2021-04-30 10:11 | disposition home or self-care (01) ==
LOC: ER 13:42 → OR 13:48 → MEDSURG 17:25
PROVIDERS: Emergency Medicine; Admitting Provider Surgery; Emergency Provider Physician Assistant; PCP Family Medicine; Visit Provider Surgery
PROC: 0WQF0ZZ Repair Abdominal Wall, Open Approach (ICD-10-PCS; CPT 49520; principal; 2021-04-29 14:00)
PROC: (CPT 49520; 2021-04-29 14:00)
DX: K43.6 Other and unspecified ventral hernia with obstruction, without gangrene (principal); K56.609 Unspecified intestinal obstruction, unspecified as to partial versus complete obstruction; K42.0 Umbilical hernia with obstruction, without gangrene; F17.210 Nicotine dependence, cigarettes, uncomplicated; I10 Essential (primary) hypertension; E03.9 Hypothyroidism, unspecified; E66.01 Morbid (severe) obesity due to excess calories; Z68.44 Body mass index [BMI] 60.0-69.9, adult
CPT/HCPCS: 49520; 36415; 74177; 80048; 80053; 81003; 81025; 83605; 83690; 85025; 85610; 85730; 88302; 94640; 96361; 96365; 96372; 96375; 99285; 99291; G0378; J0330; J0690; J1100; J1200; J1644; J1885; J1956; J2405; J2704; J2710; J3010; J3490; J7030; J7614

== ENCOUNTER → 2022-11-13 11:30 | Outpatient (BNVA) | payer OTHER, SELFPAY | PROVIDERS: PCP Family Medicine; Visit Provider Obstetrics & Gynecology | DX: N92.6 Irregular menstruation, unspecified (principal); N92.0 Excessive and frequent menstruation with regular cycle | CPT/HCPCS: 83001; 84146; 84443; 84702; 85025 ==

== ENCOUNTER → 2022-12-26 15:28 | Outpatient (BNVA) | payer OTHER, SELFPAY | PROVIDERS: PCP Family Medicine; Visit Provider Obstetrics & Gynecology | DX: R10.2 Pelvic and perineal pain (principal) | CPT/HCPCS: 76830 ==

== ENCOUNTER → 2022-12-29 10:00 | Outpatient (BNVA) | payer OTHER, SELFPAY | PROVIDERS: PCP Family Medicine; Visit Provider Obstetrics & Gynecology | DX: G89.29 Other chronic pain (principal); N92.1 Excessive and frequent menstruation with irregular cycle; R10.2 Pelvic and perineal pain | CPT/HCPCS: 87624 ==

== ENCOUNTER 2023-12-28 08:15 | Emergency (ER) | payer OTHER, SELFPAY ==
[2023-12-28 08:27] VITALS: BP 156/82; PULSE 82; RESP 18; TEMP 36.9; O2SAT 97; BMI 53.2
--- NOTE | 2023-12-28 08:34 | W.ED.LOWEXIN ---
HPI - Extremity Injury (Lower) General: Chief Complaint: Wound/Laceration Stated Complaint: left foot pain and vein break Time Seen by Provider: 12/28/23 08:23 History of Present Illness: 38-year-old female who presents emergency room complaining of rupture of a superficial varicose vein at home. Patient takes occasional aspirin but no regular anticoagulants does not even take daily aspirin at this point. She has had this in the past. On the medial aspect of her left lower leg she has a dressing in place this was removed there is no active bleeding at this time has a slightly excoriated area with erosion of a varicose vein. [facility] ED PFSH: Medical History Chronic back pain Hypertension Polycystic ovary disease Hypothyroidism Surgical History Varicose vein of leg Ablated from left thigh Social History Smoking and tobacco/nicotine status: current every day tobacco/nicotine user cigarettes Packs smoked per day: 0.5 Years cigarettes smoked: 15 Alcohol intake: never Physical Exam Const: COMMON NORMALS: no acute distress GENERAL APPEARANCE: cooperative and comfortable ORIENTATION/CONSCIOUSNESS: Yes awake, Yes oriented to person, Yes oriented to place and Yes oriented to time Resp: COMMON NORMALS: normal respiratory effort Extremity: OTHER: Multiple varicose veins on the lower extremities bilaterally improvise dressing from home removed patient also had a elastic cord wrapped around her upper legs this was also removed there is no evidence of active bleeding. And the dressing is removed there is an excoriated area appears to have been a small rupture of varicose vein but there is no active bleeding present. Neuro: SENSORIUM/ORIENTATION: Yes oriented to person, Yes oriented to place and Yes oriented to time Skin: COMMON NORMALS: no rashes or lesions noted GENERAL SKIN EXAM: no rashes or lesions noted Course Vital Signs: Vital signs: Vital Signs Temperature 98.4 F 12/28/23 08:27 Pulse Rate 82 12/28/23 08:27 Respiratory Rate 18 12/28/23 08:27 Blood Pressure 156/82 12/28/23 08:27 Pulse Oximetry 97 12/28/23 08:27 Oxygen Delivery Me thod Room Air 12/28/23 08:27 MDM - Extremity Injury (Lower) Medical Decision Making Remove the dressing that she had placed at home is no active bleeding replace it with a folded 4 x 4 and [place] left in place for 30 minutes. No further bleeding on reevaluated. Will discharge home apply topical antibiotic ointment continue pressure dressing for the next couple of days if has recurrence of bleeding return at this point not actively bleeding do not believe any intervention will particularly be needed or will help may actually worsen things. No radiology studies performed this visit Discharge Plan Discharge Patient Disposition: Home Clinical Impression: Bleeding from varicose veins of left lower extremity Condition: Stable Prescriptions: New mupirocin 2 % ointment 1 applic topical BID Qty: 15 0RF No Action pregabalin [Lyrica] 75 mg capsule 75 mg PO BID ibuprofen 800 mg tablet 800 mg PO TID Qty: 90 0RF norgestimate-ethinyl estradiol [Sprintec (28)] 0.25-35 mg-mcg tablet 1 tab PO DAILY Qty: 84 0RF hydrocodone-acetaminophen 5-325 mg Tablet 1 tab PO Q4H PRN (Reason: Pain) Rx Instructions: 1/2-2 tabs amlodipine 5 mg Tablet 5 mg PO DAILY levothyroxine 50 mcg Tablet 50 mcg PO DAILY tramadol 50 mg Tablet 50 mg PO Q6H PRN (Reason: Pain) lisinopril-hydrochlorothiazide 20-25 mg tablet 1 tab PO DAILY Discharge Orders: Discharge ED (Routine); Ordered 12/28/23 Ordered By: Peter Lopez Referrals: Dafne Minaya DO [Primary Care Provider] - Patient Instructions: Opioid Safety, Pain Management Coding Level of Care Code ED Weight Guesser for Stefania Kinsey
[2023-12-28] MEDS: mupirocin oint 22 gm 1 APPLIC TOPICAL (09:28)
== END 2023-12-28 09:49 | disposition home or self-care (01) ==
PROVIDERS: Emergency Provider Family Medicine; PCP Family Medicine
DX: I83.892 Varicose veins of left lower extremity with other complications (principal); I10 Essential (primary) hypertension; F17.210 Nicotine dependence, cigarettes, uncomplicated
CPT/HCPCS: 99283